=== PATIENT | female | born 2000 | race Caucasian/White ===

== ENCOUNTER 2020-03-05 15:04 | Emergency (ER) | payer OTHER, SELFPAY ==
[2020-03-05 15:05] VITALS: BP 140/99; PULSE 78; RESP 18; TEMP 36.6; O2SAT 100
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
[2020-03-05] MEDS: ACETAMINOPHEN 500 MG TABLET 1000 MG PO (16:05)
[2020-03-05] MEDS: KETOROLAC 30 MG/ML VIAL (*BKC) IM (16:06)
[2020-03-05] MEDS: MECLIZINE HCL 25 MG TABLET PO (16:06)
== END 2020-03-05 16:16 | disposition home or self-care (01) ==
PROVIDERS: Emergency Provider Emergency Medicine
DX: S06.0X0A Concussion without loss of consciousness, initial encounter (principal); V49.40XA Driver injured in collision with unspecified motor vehicles in traffic accident, initial encounter
CPT/HCPCS: 96372; 99283; A9270; J1885